=== PATIENT | female | born 1985 | race Caucasian/White ===

== ENCOUNTER 2016-11-27 12:15 | Outpatient (CLI) | payer OTHER ==
[~2016-11-27 12:15] MED LIST: ANTACI2 PO; MULTIVITAMIN1 TAB PO
== END 2016-11-27 23:00 ==
LOC: NM SRH 12:15 → LAB SRH 12:15 → NM SRH 12:30
DX: Z11.9 Encounter for screening for infectious and parasitic diseases, unspecified (principal)
CPT/HCPCS: 90074; 90075

== ENCOUNTER 2016-12-04 13:09 | Outpatient (CLI) | payer OTHER ==
--- NOTE | 2016-12-04 16:42 | DIAGNOSTIC IMAGING REPORT ---
PROCEDURE: NM HEPATOBILIARY IMAGING INDICATION: EPIGASTRIC PAIN TECHNIQUE: 8 mCi of technetium-99m Choletec was injected intravenously and images were acquired over a one hour time interval. Following a fatty milk meal , calculation of gallbladder ejection fraction was obtained. COMPARISON: None. FINDINGS: Homogeneous radiotracer uptake throughout the liver. Gallbladder is first visualized at 15 minutes. Small bowel activity is seen at 14 minutes. The gallbladder ejection fraction was zero at 20 minutes, zero at 40 minutes and 12% at 16 minutes. IMPRESSION: 1. Patent cystic and common bile ducts 2. Gallbladder dyskinesia
== END 2016-12-04 23:00 ==
LOC: NM SRH 13:09
DX: R10.13 Epigastric pain (principal); K82.8 Other specified diseases of gallbladder

== ENCOUNTER 2016-12-08 09:38 | Outpatient (CLI) | payer OTHER | END 2016-12-08 23:00 | LOC: LAB SRH 09:38 | DX: Z11.9 Encounter for screening for infectious and parasitic diseases, unspecified (principal) | CPT/HCPCS: 90077 ==

== ENCOUNTER 2017-01-25 12:11 | Day surgery (SDC) | payer OTHER ==
[2017-01-25] VITALS (7 sets, daily range): BP systolic 90–132; BP diastolic 47–74
[~2017-01-25] VITALS: Ht 180.3 cm; Wt 90.7 kg
[2017-01-25] MEDS ORDERED: DEMEROL50 MG PO (16:23)
--- NOTE | 2017-01-25 16:24 | Provider's Discharge Care Plan ---
Problem, Goal, Plan Problem List 1. S/P laparoscopic cholecystectomy Goals: Improve disease control, Therapeutic intervention Instructions: Follow up as directed, Take meds as directed
--- NOTE | 2017-01-25 16:24 | DIAGNOSTIC IMAGING REPORT ---
PROCEDURE: XR INTRAOPERATIVE LAP NAREN INDICATION: BILIARY DYSKINESIA TECHNIQUE: Intraoperative fluoroscopy provided for Dr. Pan performing an intraoperative cholangiogram following cholecystectomy. Total fluoroscopy time 2 seconds Cumulative dose 0.6 mGy. COMPARISON: Hepatobiliary scan 12/04/2016 FINDINGS: A single intraoperative fluoroscopic spot image of the right upper quadrant of the abdomen demonstrates cannulation of the cystic duct stump and opacification of the intrahepatic and extrahepatic biliary tree. There are no filling defects. There is normal passage of contrast into the duodenum. IMPRESSION: 1. Negative intraoperative cholangiogram.
--- NOTE | 2017-01-25 16:24 | Provider's Discharge Care Plan ---
Problem, Goal, Plan Problem List 1. S/P laparoscopic cholecystectomy Goals: Improve disease control, Therapeutic intervention Instructions: Follow up as directed, Take meds as directed
--- NOTE | 2017-01-25 19:21 | OPERATIVE REPORT ---
DATE OF SURGERY: 01/25/2017 SURGEON: Raul Pan III, MD [employer] OPERATOR: Woo Brar MD PREOPERATIVE DIAGNOSIS: 1. Dyskinesia of the gallbladder POSTOPERATIVE DIAGNOSIS: 1. Dyskinesia of the gallbladder PROCEDURE PERFORMED: 1. Laparoscopic cholecystectomy, intraoperative cholangiogram ANESTHESIA: General endotracheal. COMPLICATIONS: No intraoperative or anesthetic complications. ESTIMATED BLOOD LOSS: None. FLUIDS: 1000 mL Lactated Ringer's. PATHOLOGY SPECIMEN: Sent to laboratory, gallbladder. INDICATIONS: A 31-year-old female with chronic epigastric pain, postprandial nausea. Workup to include upper GI endoscopy, ultrasound of her gallbladder, all of which were normal. HIDA scan shows abnormal ejection fraction consistent with dyskinesia of the gallbladder. After explaining the risks and benefits of surgery to the patient and whether this could control her epigastric abdominal pain, she opted to proceed with the surgery. SURGICAL FINDINGS: The patient was noted to have a distended gallbladder, thin- walled, normal in appearance. The intraoperative cholangiogram showed free flow of contrast material into the duodenum with no evidence of retained stone, visualization of hepatic radicles, hepatic duct, and common bile duct. SURGICAL TECHNIQUE: The patient was brought to the operating room, placed in the left lateral decubitus position, where he was administered general endotracheal anesthesia by the anesthesiology department. After proper anesthesia had taken effect, patient 's abdomen was prepped and draped in a sterile fashion. An infraumbilical incision made, carried down through skin, subcutaneous tissue. A Veress needle was inserted through this site into the abdominal cavity and after ascertaining its appropriate position with suction irrigation, a pneumoperitoneum obtained using CO2 insufflation. Once we were able to reach 14-15 mmHg pressure, the Veress needle was removed and replaced with a 10 mm trocar. The trocar removed leaving the sleeve behind, through which a laparoscopic video camera was introduced into abdominal cavity. Under direct visualization, a separate 10 mm trocar was placed in the subxiphoid region, two 5 mm trocars were placed in the right upper quadrant, anterior wall laterally, approximately 3-4 fingerbreadths below the costal margin, each entered the abdominal cavity under direct visualization. The trocars were removed, leaving the sleeves behind, through which laparoscopic instrumentation was used to grasp the gallbladder, retract it cephalad. The cystic duct was circumferentially isolated using a combination of blunt dissection, electrocautery. A clip was placed at the junction of the neck of the gallbladder, the cystic duct. A small incision made in the anterior surface of cystic duct. Percutaneous cholangiogram catheter was threaded through the anterior abdominal wall into the cystic duct, clipped into position, a fluoroscopic intraoperative cholangiogram obtained with the aforementioned findings noted. Once completed, the percutaneous cholangiogram catheter was retrieved from the cystic duct and the abdominal cavity. The distal cystic duct was clipped in continuity, divided. The cystic artery identified, clipped in continuity, divided. The gallbladder was taken down from its bed in a retrograde fashion with electrocautery. Once completely freed from its bed, it was placed in a sterile specimen container bag and retrieved from abdominal cavity. Hemostasis assured. Approximately 30 mL of 0.5% Marcaine with epinephrine was sprayed over the right and left dome of the liver for postoperative analgesia. The pneumoperitoneum released and all trocars removed from abdominal cavity. All trocar sites approximated using 4-0 subdermal Polysorb and Steri-Strips. Sterile pressure occlusive dressing placed over each site. The patient tolerated procedure well, was extubated, transferred to the recovery room in stable condition.
== END 2017-01-25 20:50 | disposition home or self-care (01) ==
LOC: OR SRH 12:11 → SCU SRH 12:12 → OR SRH 14:30 → ACUTE2 SRH 17:57 → OR SRH 20:50
PROVIDERS: Specialist
PROC: 0FT44ZZ Resection of Gallbladder, Percutaneous Endoscopic Approach (ICD-10-PCS; principal; 2017-01-25 14:30)
PROC: BF131ZZ Fluoroscopy of Gallbladder and Bile Ducts using Low Osmolar Contrast (ICD-10-PCS; principal; 2017-01-25 14:30)
DX: K82.8 Other specified diseases of gallbladder (principal); K81.1 Chronic cholecystitis